=== PATIENT | female | born 1955 | race Caucasian/White ===

== ENCOUNTER 2024-08-16 20:19 | Emergency (ER) | payer MEDICAID, OTHER ==
[~2024-08-16] VITALS: Ht 175.3 cm; Wt 69.1 kg
[2024-08-16 20:49] LABS: BASOPHILS % (AUTO) 0.4 % (0-1); EOSINOPHILS # (AUTO) 0.2 X10'3 (0-0.9); EOSINOPHILS % (AUTO) 1.9 % (0-6); HEMATOCRIT 37.7 % (35.0-45.0); HEMOGLOBIN 12.7 g/dl (12.0-16.0); LYMPHOCYTES # (AUTO) 3.3 X10'3 (1.1-4.8); LYMPHOCYTES % (AUTO) 39.3 % (21-51); MEAN CORPUSCULAR HGB CONC 33.6 g/dL (33.0-36.5); MEAN CORPUSCULAR VOLUME 92.4 FL (78-98); MONOCYTES # (AUTO) 0.7 X10'3 (0-0.9); NEUTROPHILS # (AUTO) 4.3 X10'3 (1.8-7.7); NEUTROPHILS % (AUTO) 50.4 % (42-75); PLATELET COUNT 239 X10'3 (140-440); RED BLOOD COUNT 4.08 X10'6 (4.20-5.60); RED CELL DISTRIBUTION WIDTH 13.2 % (11.5-14.5); WHITE BLOOD COUNT 8.5 X10'3 (4.5-11.0)
[2024-08-16 21:07] LABS: ALANINE AMINOTRANSFERASE 24 U/L (12-78); ALBUMIN 3.9 G/DL (3.4-5.0); ALBUMIN/GLOBULIN RATIO 1.1 (1.1-1.5); ALKALINE PHOSPHATASE 68 IU/L (46-116); ANION GAP 7 (8-16); ASPARTATE AMINO TRANSFERASE 25 U/L (10-37); BILIRUBIN,TOTAL 0.5 MG/DL (0.1-1.0); BLOOD UREA NITROGEN 20 MG/DL (7-18); BUN/CREATININE RATIO 24.7 (10.0-20.0); CALCIUM 8.8 MG/DL (8.5-10.1); CHLORIDE 104 MMOL/L (99-107); CREATININE 0.81 MG/DL (0.40-0.90); GLUCOSE 137 MG/DL (70-104); POTASSIUM 3.2 MMOL/L (3.5-5.1); SODIUM 140 MMOL/L (135-145); TOTAL PROTEIN 7.6 G/DL (6.4-8.2); eCRCL 67 ML/MIN; eGFR 70 ML/MIN
[2024-08-16 21:15] LABS: PRO BRAIN NATRIURETIC PEPTIDE 114 PG/ML (0-125)
[2024-08-16 21:33] LABS: BILIRUBIN,URINE NEGATIVE (Neg); CLARITY,URINE CLEAR (Clear); COLOR,URINE STRAW (Yellow); GLUCOSE, URINE NEGATIVE (Neg); KETONES,URINE NEGATIVE (Neg); LEUKOCYTE ESTERASE ,URINE MODERATE (Neg); NITRITES, URINE NEGATIVE (Neg); OCCULT BLOOD,URINE MODERATE (Neg); PROTEIN,URINE NEGATIVE (Neg); UROBILINOGEN,URINE 0.2 E.U/dL (0.2-1.0)
[2024-08-16 22:07] LABS: UA COLLECTION TYPE CLN CATCH MIDSTREAM
[2024-08-16 22:10] LABS: BACTERIA,URINE 1+ /HPF (Neg); RBC,URINE 0-2 /HPF (0-2); SQUAMOUS EPITHELIAL CELL,UR FEW /LPF (FEW)
[2024-08-16] MEDS: potassium Cl 20 mEq SR tablet PO STA (22:24)
[2024-08-16] MEDS ORDERED: CEPH-585 PO (22:52)
[2024-08-16] MEDS: cephalexin 250mg capsule PO ONE (23:08)
[2024-08-16 23:27] VITALS: BP 171/84; PULSE 70; RESP 22; TEMP 99.5; O2SAT 97
== END 2024-08-16 23:31 | disposition home or self-care (01) ==
LOC: ER 20:21
DX: N39.0 Urinary tract infection, site not specified (principal); R00.2 Palpitations; R00.0 Tachycardia, unspecified; I48.0 Paroxysmal atrial fibrillation; Z79.2 Long term (current) use of antibiotics
CPT/HCPCS: 36415; 71045; 80053; 81001; 83880; 84484; 85025; 87088; 93005; 99285